=== PATIENT | female | born 1940 | race Caucasian/White ===

== ENCOUNTER → 2016-03-02 | Outpatient (CLI) | payer MEDICARE ==
--- NOTE | 2016-03-05 13:01 | RADIOLOGY REPORT PS360 ---
DIG MAMM-SCREEN LOIS CAD Screening ORDERING PHYSICIAN : Chip Sheikh MD PATIENT AGE: 75 years GENDER: Female COMPARISON: Previous mammograms: December 2014. 2011 INDICATION: Routine screening no hormones no new complaints noncontributory family history TECHNIQUE: Standard CC and MLO images were obtained. R2 CAD reviewed. FINDINGS: Low-density breast RIGHT BREAST: There is a small focal density. 5.2 mm size Slightly irregular is seen towards upper-outer quadrant right breast.- Labeled A. I suspect this more likely benign. I believe it is vaguely evident before including on spot views January 2015 and and less dense been seen on studies dating back to 2011 and possibly 2008. However this area more dense, more evident today. Warrants additional spot views . LEFT BREAST: Stable, 5.6 mm round density inferior left breast. Previous ultrasound February 04, 2015 revealed benign-appearing most likely cyst debris-filled cyst at 6:00, which seems to correspond., Including tiny calcification at the inferior aspect of this cyst noted on that ultrasound and prior mammogram. This is show no significant change and appear to be benign feature which can be followed. ----IMPRESSION: Right breast.: Small ~5.5 mm slightly irregular focal density upper-outer quadrant right breast-has been present on multiple previous studies but appears denser & more evident today today's images.- Thus recommend additional spot views to further evaluate. . Left breast.: Stable benign round 5.6 mm density slice cyst inferior left breast. Unchanged since January 2015 studies BI-RADS CATEGORY: 0_Incomplete: Need additional imaging. RECOMMENDED FOLLOWUP: ADD ADDITIONAL IMAGING Additional spot views right breast (A letter has been sent to the patient regarding results of the study.) been sent to the patient regarding results of the study.)
== END ==
LOC: RAD 02-21 09:00
DX: Z12.31 Encounter for screening mammogram for malignant neoplasm of breast (principal)
CPT/HCPCS: G0202

== ENCOUNTER → 2016-04-20 | Outpatient (CLI) | payer MEDICARE ==
--- NOTE | 2016-04-23 11:21 | RADIOLOGY REPORT PS360 ---
DIG MAMM-DX UNI A/VW-RT W/CAD ORDERING PHYSICIAN : Silver Marquez MD PATIENT AGE: 75 yearsGENDER: Female COMPARISON: December 2011, January 2015, March 2016 bilateral mammogram studies. INDICATION: Asymmetric density right breast TECHNIQUE: Cc and MLO spot views right breast FINDINGS: The area of concern on the right breast appears less evident on spot views and seems to compress out, in keeping with multiple old studies including bilateral mammogram. 2014. Follow-up would be adequate IMPRESSION: Additional views decreased concern regarding any significant findings right breast Follow-up to resume annual scheduled recommended and March 2017 BI-RADS CATEGORY: 2_Benign RECOMMENDED FOLLOWUP: 11- 12 MONTH FOLLOW-UP to resume annual scheduled (A letter has been sent to the patient regarding results of the study.)
== END ==
LOC: RAD 14:10
DX: R92.8 Other abnormal and inconclusive findings on diagnostic imaging of breast (principal)
CPT/HCPCS: G0206-RT